=== PATIENT | female | born 1970 | race Two or more races ===

== ENCOUNTER → 2018-08-27 | Outpatient (CLI) | payer OTHER ==
[~2018-08-27] MED LIST: OXYMETAZOLINE 0.05% NASAL SPRAY 30ML BOTTLE. NS ONE; ZOLPIDEM 5 MG TABLET. PO ONE
--- NOTE | 2018-08-28 10:08 | SLEEP ---
DATE OF STUDY: 08/27/2018 REFERRING PHYSICIAN: Dr. Callejas. REFERRED BY: Dr. Nancy Rodriguez. The patient is 48 years old who weighs 330 pounds with a BMI of 61. The patient's [place] score was 15. The patient underwent split night study at [facility]. During the night of study, the patient spent 408 minutes in bed and slept for 338 minutes with a sleep efficiency of 83%. Sleep latency was 24 minutes with a REM latency of 248 minutes. Overall, sleep architecture showed increased stage 1 and stage 2 sleep, normal slow wave and normal REM sleep. During the initial diagnostic portion of the study, the patient slept for 72 minutes. During that time, the patient had 3 obstructive apneas, no mixed or central apneas and 90 hypopneas. The patient's apnea hypopnea index was 78 per hour with a supine index of 63 per hour. REM sleep was not seen during the diagnostic portion. EKG monitoring revealed sinus tachycardia. No arrhythmias observed. Average heart rate was 105 beats per minute. Nocturnal oximetry study revealed a mean oxygen saturation of 94% with lowest of 79%. 92% of time oxygen saturation remained less than 89%. PLMS were seen at index of 46 per hour and 3 per hour caused EEG arousals. The patient met the criteria for CPAP initiation, was started at 7 cm water and titrated up to 20 cm of water. At the final pressure, the patient slept for 76 minutes. The patient had supine sleep, but no REM sleep. The patient's AHI was reduced to 0 per hour. Oxygen saturations remained above 88% with few desaturations in the mid 80s. I would recommend having nocturnal oximetry study as an outpatient on current CPAP. The patient used small size nasal pillows. IMPRESSION: 1. Severe sleep apnea-hypopnea syndrome at an AHI of 78 per hour. 2. Nocturnal hypoxia secondary to combination of obstructive sleep apnea and suspected obesity hypoventilation syndrome. 3. Severe PLMS. RECOMMENDATIONS: 1. CPAP at 20 cm water completely eliminated the patient's sleep apnea and should be used on a nightly basis. 2. The patient should have a nocturnal oximetry study as an outpatient on current CPAP to assess the need for supplemental oxygen. 3. The patient used small size nasal pillows. 4. Weight loss is strongly advised. 5. Avoid [employer] depressants. 6. Caution regarding driving until symptoms of sleep apnea resolve with the use of CPAP. 7. The patient should also be further evaluated for symptoms of restless legs during the day. MAYO SMITH MD DR: JERAD/sweta JOB#: [id number] / [id number] HARRIS Constantino MD
== END | disposition home or self-care (01) ==
LOC: SLPLAB 19:13
PROVIDERS: ATTEND Internal Medicine Pulmonary Disease
DX: G47.33 Obstructive sleep apnea (adult) (pediatric) (principal); G47.34 Idiopathic sleep related nonobstructive alveolar hypoventilation; G47.61 Periodic limb movement disorder
CPT/HCPCS: 95810

== ENCOUNTER 2020-11-04 06:36 | Emergency (ER) | payer SELFPAY ==
[~2020-11-04] VITALS: Ht 157.5 cm; Wt 146.0 kg
[2020-11-04 08:00] VITALS: BP 122/59
[2020-11-04] MEDS ORDERED: ACETAMINOPHEN 500 MG TABLET PO ONE (08:00)
[2020-11-04] MEDS ORDERED: IPRATRPIUM/ALBUTEROL 0.5/2.5MG 3 ML NEBU. NEB ONE (08:00)
--- NOTE | 2020-11-04 08:09 | RAD ---
Study: XR CHEST 1V Indication: Cough. Chills. Shortness of air. Comparison: None. Findings: The cardiomediastinal silhouette is at the upper limits of normal for size noting accentuation by AP technique. Relatively symmetric eryn. Increased interstitial markings. No confluent infiltrate, layering effusion or pneumothorax. Flatteni ng of the diaphragm more noticeable on the left. Impression: Upper limits of normal size of the cardiomediastinal silhouette and increased interstitial markings. Note is also made that the diaphragm is somewhat flattened particularly noticeable on the left. The l jostin findings could relate to mild interstitial edema or emphysema. Correlate for a smoking history. N o confluent infiltrate to suggest an organizing pneumonia. Electronically signed by: KATE HAWKINS MD (11/04/2020 8:07 AM) [id number]
--- NOTE | 2020-11-04 08:39 | PHYS DOC ---
Past Medical History Past Medical History: Diabetes-Type II, Hypertension, Hypothyroid, Other Additional Past Medical Histor: morbid obesity Past Surgical History: Cholecystectomy, , Tubal ligation, Other Additional Past Surgical Histo: hernia repair, achilles tendon repair Smoking Status: Current Every Day Smoker Additional Information: 08-14 ppd Alcohol Use: None General Adult EDM: Chief Complaint: MULTIPLE COMPLAINTS HPI: HPI: Patient is a 50 year old female who presented to ER due to body ache fever and chill headache for the last 3 days. Patient had her second dose of COVID 19 vaccine on last Monday. Since patient has have fever, chill, bodyache, congestion, nonproductive cough with wheezing. Patient has history of asthma. Patient has history of intermittent. Patient denies any chest pain, no abdominal pain, no nausea vomiting. Review of Systems: Review of Systems: Constitutional: Positive for fever and chills. [] Eyes: Denies change in visual acuity. [] HENT: Denies nasal congestion or sore throat. [] Respiratory: Positive for cough and shortness of breath. [] Cardiovascular: Denies chest pain or edema. [] GI: Denies abdominal pain, nausea, vomiting, bloody stools or diarrhea. [] : Denies dysuria. [] Musculoskeletal: Denies back pain , positive for bodyache. Integument: Denies rash. [] Neurologic: Denies headache, focal weakness or sensory changes. [] Endocrine: Denies polyuria or polydipsia. [] Lymphatic: Denies swollen glands. [] Psychiatric: Denies depression or anxiety. [] Heart Score: C/O Chest Pain: N/A Risk Factors: Risk Factors: DM, Current or recent (<one month) smoker, HTN, HLP, family history of CAD, obesity. Risk Scores: Score 0 - 3: 2.5% MACE over next 6 weeks - Discharge Home Score 4 - 6: 20.3% MACE over next 6 weeks - Admit for Clinical Observation Score 7 - 10: 72.7% MACE over next 6 weeks - Early Invasive Strategies Current Medications: Current Medications Medications (Trade) Dose Ordered Sig/Jamil Start Time Stop Time Status Last Admin Dose Admin Acetaminophen (Tylenol) 1,000 mg 1X ONCE 11/04/20 08:00 11/04/20 08:01 DC 11/04/20 08:00 1,000 MG Albuterol/ Ipratropium (Duoneb) 3 ml 1X ONCE 11/04/20 08:00 11/04/20 08:01 DC Allergies: Allergies: Allergies Coded Allergies Type Severity Reaction Last Updated Verified metoclopramide Allergy Intermediate Unknown 08/24/18 Yes morphine Allergy Intermediate Unknown 08/24/18 Yes latex Adverse Reaction Intermediate BLISTERS 08/24/18 Yes Physical Exam: PE: Constitutional: Well developed, well nourished, no acute distress, non-toxic appearance. [] HENT: Normocephalic, atraumatic, bilateral external ears normal, oropharynx moist, no oral exudates, nose normal. [] Eyes: PERRLA, EOMI, conjunctiva normal, no discharge. [] Neck: Normal range of motion, no tenderness, supple, no stridor. [] Cardiovascular:Heart rate regular rhythm, no murmur [] Lungs & Thorax: Bilateral breath sounds clear to auscultation [] Abdomen: Bowel sounds normal, soft, no tenderness, no masses, no pulsatile masses. [] Skin: Warm, dry, no erythema, no rash. [] Back: No tenderness, no CVA tenderness. [] Extremities: No tenderness, no cyanosis, no clubbing, ROM intact, no edema. [] Neurologic: Alert and oriented X 3, normal motor function, normal sensory function, no focal deficits noted. [] Psychologic: Affect normal, judgement normal, mood normal. [] Current Patient Data: Vital Signs: Vital Signs Date Time Temp Pulse Resp B/P (MAP) Pulse Ox O2 Delivery O2 Flow Rate FiO2 11/04/20 08:31 98 Room Air 11/04/20 08:00 85 24 122/59 (80) 11/04/20 07:03 98.3 98.3 EKG: EKG: [] Radiology/Procedures: Radiology/Procedures: [][facility] [address] [place] [address] IMAGING REPORT Signed PATIENT: CROW ALVAACCOUNT: [id number] : 1970 LOCATION: ER AGE: 50 SEX: F EXAM STATUS: REG ER ORD. PHYSICIAN: CURTIS GALICIA DO REASON: COUGH, CHILL, SOA PROCEDURE: CHEST AP ONLY Study: XR CHEST 1V Indication: Cough. Chills. Shortness of air. Comparison: None. Findings: The cardiomediastinal silhouette is at the upper limits of normal for size noting accentuation by AP technique. Relatively symmetric eryn. Increased interstitial markings. No confluent infiltrate, layering effusion or pneumothorax. Flattening of the diaphragm more noticeable on the left. Impression: Upper limits of normal size of the cardiomediastinal silhouette and increased interstitial markings. Note is also made that the diaphragm is somewhat flattened particularly noticeable on the left. The lung findings could relate to mild interstitial edema or emphysema. Correlate for a smoking history. No confluent infiltrate to suggest an organizing pneumonia. Electronically signed by: KATE HAWKINS MD (11/04/2020 8:07 AM) [id number] DICTATED and SIGNED BY: KATE HAWKINS MD DATE: 11/04/20 [id number] 0 Course & Med Decision Making: Course & Med Decision Making Pertinent Labs and Imaging studies reviewed. (See chart for details) Patient is a 50-year-old female who presented to ER due to body ache, fever and chill, headache, cough, trouble breathing after her 2nd Covid vaccine v accination 4 days ago. Patient vitals was stable in the ER, her chest x-ray did not show any evidence of pneumonia. Patient will be discharged home. Advised to take ibuprofen or Tylenol as needed for symptomatic treatment. Dragon Disclaimer: Julisa Disclaimer: This electronic medical record was generated, in whole or in part, using a voice recognition dictation system. Departure Departure Impression: Primary Impression: Viral syndrome Disposition: 01 DC HOME SELF CARE/HOMELESS Condition: STABLE Referrals: NO PCP (PCP) follow up with your doctor as needed Or please follow up with [facility] this week. [address], [address] [place] [address] Phone number: [phone] Patient Instructions: Viral Syndrome Additional Instructions: Thank you for visiting our Emergency Department. We appreciate you trusting us with your care. If any additional problems come up don't hesitate to return to visit us. Please follow up with your primary care provider so they can plan additional care if needed and know about the problem that you had. If symptoms worsen come back to the Emergency Department. Any concerning symptoms that start such as chest pain, shortness of air, weakness or numbness on one side of the body, running high fevers or any other concerning symptoms return to the ER. CURTIS GALICIA DO Nov 04, 2020 08:39
== END 2020-11-04 09:13 | disposition home or self-care (01) ==
LOC: ER 06:36
DX: B34.9 Viral infection, unspecified (principal); R50.9 Fever, unspecified; R51.9 Headache, unspecified; R05 Cough; E11.9 Type 2 diabetes mellitus without complications; I10 Essential (primary) hypertension; E03.9 Hypothyroidism, unspecified; F17.200 Nicotine dependence, unspecified, uncomplicated; E66.01 Morbid (severe) obesity due to excess calories; Z68.43 Body mass index [BMI] 50.0-59.9, adult; Z90.49 Acquired absence of other specified parts of digestive tract; Z98.51 Tubal ligation status; Z98.890 Other specified postprocedural states; Z88.6 Allergy status to analgesic agent; Z91.040 Latex allergy status; Z88.8 Allergy status to other drugs, medicaments and biological substances
CPT/HCPCS: 71045; 94640; 99284